=== PATIENT | female | born 1960 | race Caucasian/White ===

== ENCOUNTER 2023-06-08 01:18 | Inpatient (IN) ==
[2023-06-08] MEDS: Lactated Ringers SEPSIS* BAG 2,060 ML IV ONE (03:07)
[2023-06-08] MEDS: Cefepime 2 GM in Dextrose 2 GM/50 ML BAG IV ONE (03:07)
[2023-06-08 03:33] LABS: ABS Lymphocytes 0.4 10^3/uL (1.0-4.8); ABS Monocytes 0.5 10^3/uL (0.0-0.9); ABS Nucleated RBC 0.02 10^3/ul; Eosinophil % 0.1 %; Hematocrit 38.3 % (35-45); Hemoglobin 13.5 g/dL (11.5-14.3); Lymphocyte % 4.1 %; Mean Corpuscular Hemoglobin 31.3 pg (27-33); Mean Corpuscular Hgb Conc 35.4 g/dL (31-36); Mean Corpuscular Volume 88.4 fL (80-97); Mean Platelet Volume 8.6 fL (7.5-11.2); Nucleated Red Blood Cells % 0.2 %/100WBC (0.0-0.8); Platelet Count 182 10^3/uL (150-450); Red Blood Count 4.33 10^6/uL (3.63-4.92); White Blood Count 8.9 10^3/uL (3.8-11.8)
[2023-06-08] MEDS: Vancomycin 1,250 MG in NS 0.9% 250 ml 250 ML IVPB ONE (03:48)
[2023-06-08] MEDS: metroNIDAZOLE IV 500 MG/100ML 500 MG/100 ML BAG IVPB ONE (03:48)
[2023-06-08 04:01] LABS: Albumin 4.2 g/dL (3.2-5.2); Albumin/Globulin Ratio 1.4 (1-3); C Reactive Protein 135.27 mg/L (<8.01); Calcium 9.3 mg/dL (8.6-10.3); Creatinine, Serum 1.02 mg/dL (0.51-0.95); Globulin 2.9 g/dL (2-4); Potassium 3.7 mmol/L (3.5-5.0); Total Bilirubin 0.9 mg/dL (0.2-1.0); Total Protein 7.1 g/dL (6.4-8.9); eGFR CKD-EPI 62.2 (>60)
[2023-06-08] MEDS: Ondansetron 4 mg VIAL 2 MG/ML 2 ml VIAL IV ONE (04:39)
[2023-06-08] MEDS: Iohexol 300 (CONTRAST) 10 ML SDV IV ONE (04:43)
[2023-06-08 05:49] LABS: High Sensitivity Troponin 1 Hr 197 pg/mL (<15)
[2023-06-08 08:26] LABS: HDL Cholesterol 57.3 mg/dL
[2023-06-08] MEDS ORDERED: Senna TAB 8.6 mg TAB PO PRN (08:29)
[2023-06-08] MEDS ORDERED: Dextrose 50% Syringe 50 ml 25 GM/50 ML SYRINGE IV PUSH PRN (08:29)
[2023-06-08 08:46] LABS: Urine Appearance Clear; Urine Bilirubin Negative (Negative); Urine Blood Negative (Negative); Urine Color Light-Yellow; Urine Glucose Negative (Negative); Urine Ketones Negative (Negative); Urine Nitrite Negative (Negative); Urine Protein Negative (Negative); Urine Specific Gravity 1.033 (1.002-1.030); Urine Urobilinogen Negative (Negative)
[2023-06-08 10:05] LABS: High Sensitivity Troponin 3 Hr 172 pg/mL (<15)
[2023-06-08 10:07] LABS: Urine Bacteria Absent /HPF (Absent); Urine Red Blood Cell Trace(0-2/hpf) /HPF (0-Trace); Urine Squamous Epithelial Cell Present /HPF (Absent); Urine White Blood Cell 3+(>20/hpf) /HPF (0-Trace)
[2023-06-08] MEDS: Lactated Ringers 1000 ml BAG 1,000 ML IV ONE (11:30)
[2023-06-08] MEDS ORDERED: cefTRIAXone 1 gm/50 mL D5W 1 GM/50 ML BAG IV SCH (14:00)
[2023-06-08] MEDS: Lactated Ringers 1000 ml BAG 1,000 ML IV SCH (14:38)
[2023-06-08] MEDS: cefTRIAXone 1 gm/50 mL D5W 1 GM/50 ML BAG IV SCH (15:45)
[2023-06-08] MEDS: Insulin ISOPH/REG 70/30 SUBCUT SCH (17:58)
[2023-06-08] MEDS: Enoxaparin 40 MG/0.4 ML SYR SUBCUT SCH (20:03)
[2023-06-09 06:02] LABS: ABS Lymphocytes 0.3 10^3/uL (1.0-4.8); ABS Monocytes 0.3 10^3/uL (0.0-0.9); ABS Neutrophils 4.5 10^3/uL (1.5-7.6); Hematocrit 34.8 % (35-45); Hemoglobin 12.4 g/dL (11.5-14.3); Lymphocyte % 5.4 %; Mean Corpuscular Hgb Conc 35.5 g/dL (31-36); Mean Corpuscular Volume 87.3 fL (80-97); Mean Platelet Volume 8.4 fL (7.5-11.2); Nucleated Red Blood Cells % 0.1 %/100WBC (0.0-0.8); Platelet Count 145 10^3/uL (150-450); Red Blood Count 3.98 10^6/uL (3.63-4.92); Red Cell Distribution Width 13.9 % (12-17); White Blood Count 5.1 10^3/uL (3.8-11.8)
[2023-06-09 06:21] LABS: Calcium 8.1 mg/dL (8.6-10.3); Creatinine, Serum 0.89 mg/dL (0.51-0.95); Potassium 3.6 mmol/L (3.5-5.0); eGFR CKD-EPI 73.3 (>60)
[2023-06-09] MEDS ORDERED: Calcium Carb (TUMS) 500 mg CHEW TAB PO PRN (12:17)
[2023-06-10] MEDS: Insulin ISOPH/REG 70/30 SUBCUT SCH (16:54)
[2023-06-11 05:11] VITALS: BP 131/83
== END 2023-06-11 10:05 | disposition home or self-care (01) | DRG 720 ==
LOC: ED 01:18 → EDHOLD 01:18 → SUATTDRO 08:08 → MED 09:39
PROVIDERS: ADMIT Internal Medicine; ATTEND Hospitalist